=== PATIENT | male | born 1950 | race Caucasian/White ===

== ENCOUNTER 2019-01-02 10:10 | Outpatient (CLI) | payer OTHER ==
--- NOTE | 2019-01-04 22:43 | XRAY Report ---
Reason: PAIN IN LEFT FOOT, M79.672 Procedure Date: 01/02/2019 Accession Number: [id number] / [id number] Procedure: XRS - Foot 3 View LT CPT Code: FULL RESULT: EXAM: LEFT FOOT RADIOGRAPHY EXAM DATE: 01/02/2019 10:30 AM. CLINICAL HISTORY: PAIN IN LEFT FOOT, M79. 672. COMPARISON: None. TECHNIQUE: 3 views. FINDINGS: Bones: Normal. No fractures or bone lesions. 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 Soft Tissues: Calcification of the plantar fascia. IMPRESSION: No evidence of fracture. Osteoarthritis. [facility]
== END 2019-01-02 10:11 | disposition home or self-care (01) ==
LOC: DI.S 10:10
PROVIDERS: ATTEND Nurse Practitioner Family
DX: M19.072 Primary osteoarthritis, left ankle and foot (principal)